=== PATIENT | male | born 1980 | race Hispanic/Latino ===

== ENCOUNTER 2016-11-02 21:53 | Emergency (ER) | payer MEDICARE, MEDICAID ==
[~2016-11-02] VITALS: Ht 175.3 cm; Wt 59.5 kg
[~2016-11-02 21:53] MED LIST: ACET-2605 PO; ADAL40PE2 SQ; ALPR0.25 PO; FOLI1TAB18 PO; METH15TA2 PO; METO5TAB78 PO; PANT40TA2 PO; RIFA550T3 PO
[2016-11-02 22:12] VITALS: BP 113/81; PULSE 136; RESP 20; O2SAT 96
[2016-11-02 23:18] LABS: BASOPHILS % (AUTO) 0.2 % (0-3); EOSINOPHILS % (AUTO) 0.5 % (0-5); MONOCYTES % (AUTO) 3.9 % (4-12); Mean Corpuscular Hemoglobin 30.7 pg (27.0-35.0); Mean Corpuscular Volume 87.7 fL (81-100); NEUTROPHILS % (AUTO) 87.3 % (40-74); Platelet Count 306 bil/L (150-400)
[2016-11-03 00:05] VITALS: BP 113/81; PULSE 136; RESP 20; O2SAT 96
[2016-11-03] MEDS ORDERED: Ondansetron 2 mg/mL 2 mL Inj IVPUSH ONE (01:35)
[2016-11-03] MEDS ORDERED: Pantoprazole 4 mg/mL 10 mL Inj IVPUSH ONE (01:35)
[2016-11-03] MEDS ORDERED: 0.9% Sodium Chloride 1,000 ML IV ONE (01:40)
--- NOTE | 2016-11-03 01:53 | ABG ---
DateTimeAnalyzed 01:49:00 -_ pH ____7.193 - 7.350 7.450 pCO2 ___21.1__ -mmHg 35.0 45.0 pO2 128 -mmHg 69.0 116 HCO3- ____7.8__ -mmol/L 22.0 26.0 ABE __-19.1__ -mmol/L -2.0 2.0 tHb ___14.3__ -g/dL O2Hb ___95.8__ -% COHb ____0.9__ -% MetHb ____1.2__ -% sO2 ___97.9__ -% 25.0 FIO2 ___21.0__ -% Set_RR ___20.0__ -b/min Drawn By MM - Date/Time Notified____ 01:53:00 -_ Notified By MM - Notified Whom DR LLOYD - B 760 -mmHg tO2 ___19.4__ -Vol% Anshul test _Positive -
[2016-11-03] MEDS ORDERED: D5W1/2NS 1,000 mL IV PRN (02:10)
[2016-11-03] MEDS ORDERED: Insulin Human REGular 100 Units/100 mL NS IV SCH ×2 (02:10)
[2016-11-03] MEDS ORDERED: Insulin Human REGular 300 Unit/3 mL Inj IV ONE (02:15)
--- NOTE | 2016-11-03 02:19 | ED.REPORT ---
HPI-Dizziness / Weakness Date of Service November 03, 2016 ED Provider: Tom Webster MD Patient is a 36-year-old male with history of ulcerative colitis and osteopenia who presented to [facility] Emergency Department accompanied by his complaining of worsening weakness, nausea, vomiting, decreased appetite, polyuria, and polydipsia. Patient reports the onset of symptoms about a week and half ago but he got much worse over the last 2 days. Patient denies previous diagnosis of diabetes mellitus. He was noted to be hyperglycemic at his last admission, but was on prednisone at that time. Patient denies fevers, chills, shortness of breath, chest pain, diarrhea, bloody stools, dysuria. Patient is currently on methotrexate and vedolizumab for ulcerative colitis. He denies any recent use of prednisone. Nursing Notes Stated Complaint: VOMITING Chief Complaint: General Complaint Nursing Notes Reviewed: Yes Allergies: Coded Allergies: No Known Allergies (Verified Allergy, Unknown, 11/02/16) Scheduled Acetaminophen/Diphenhydramine (Tylenol Pm Ex-Strength Caplet) 500 Mg-25 Mg Tablet 1 EACH PO QID Adalimumab (Humira Crohn's) 40 Mg/0.8 Ml Pen.ij.kit 40 MG SQ WEEKLY Folic Acid (Folic Acid) 1 Mg Tablet 1 MG PO DAILY Methotrexate Sodium (Trexall) 15 Mg Tablet 15 MG PO WEEKLY Metoclopramide (Reglan) 5 Mg Tablet 5 MG PO ACHS Pantoprazole DR (Protonix) 40 Mg Tablet 40 MG PO BID Rifaximin (Xifaxan) 550 Mg Tablet 550 MG PO TID Scheduled PRN Alprazolam (Xanax) 0.25 Mg Tablet 0.25 MG PO TID PRN PRN For Anxiety General Time Seen by MD: 00:17 Chief Complaint Generalized weakness Hx Obtained From: Patient, Spouse Arrived By: Walk-in Onset Occurred: More than a week ago... Location: : Abdomen Quality: Cramping Radiation: Does not radiate Severity: Current: Mild Recent Healthcare: No recent hospitalization Past Medical History Past Medical History Ulcerative colitis, diagnosed earlier this year Pancytopenia secondary to mercaptopurine therapy, since discontinued Protein calorie malnutrition and weight loss Recurrent fevers, felt to be related to his inflammatory bowel disease Past Surgical History Denies Family History Reviewed, no relevant findings Smoking History Never Smoker Social History Alcohol Use: Denies alcohol use Drug Use: Denies drug use Other Social History: Ambulatory Status Independent Review of Systems A comprehensive review of systems has been conducted with the patient was found to be negative except what is mentioned in the history of present illness. Constitutional: Reports: Fatigue, Lethargy, Recent wt loss, Denies: Fever Respiratory: Denies: Dyspnea on exertion Cardiovascular: Denies: Chest pain GI: Reports: Abdominal pain, Anorexia, Nausea, Vomiting, Denies: Diarrhea, Hematemesis, Hematochezia, Melena, Mucousy stool Hematologic: Denies Bleeding Endocrine: Reports: Polydipsia, Polyuria, Weight loss Physical Exam Initial Vital Signs Vital Signs (First) Date Time Temp Pulse Resp B/P Pulse Ox O2 Delivery O2 Flow Rate FiO2 11/02/16 22:12 36.6 136 20 113/81 96 Room Air Initial VS: Reviewed, Vital signs abnormal (heart rate 136) General/Constitutional: Awake, Alert Distress / Hydration: Positive: Distress mild Appearance / Presentation: Positive: Frail Head / Eyes: Atraumatic, Normocephalic, PERRL, Conjunctiva NL Respiratory / Chest: Atraumatic, No wheezing Diminished Breath Sounds: Positive: Decreased bilateral Cardiovascular: Regular rhythm, No murmurs Heart Rate / Rhythm: Positive: Tachycardia Neurologic: Oriented X3, Speech NL Neck: Atraumatic, Supple, Non-tender Abdomen: Atraumatic, Soft, Non-tender, No guarding, No rebound Lower Extremity / Pelvis / MS: Inspection NL, No swelling, Non-tender, No erythema Interpretation & Diagnostics In summary, this is a 36-year-old male presenting to ED with diabetic ketoacidosis. No previously established diagnosis of diabetes mellitus. Patient started on normal saline IV hydration, IV insulin, Zofran and Protonix. Serum ketones, ABG, lipase,lactic acid, BMP, hemoglobin A1c, magnesium and phosphate are ordered and pending. Patient will be admitted for further treatment and management of DKA. Lab Results Interpretation Result Diagram: 11/02/16 2302 11/02/16 230 Test 11/02/16 23:02 11/03/16 01:15 11/03/16 02:26 White Blood Count 8.3th/mm3 (3.8-10.1) Red Blood Count 5.28mil/mm3 (4.40-5.80) Hemoglobin 16.2g/dL (13.8-17.2) Hematocrit 46.3% (41.0-50.0) Mean Corpuscular Volume 87.7fL (81-100) Mean Corpuscular Hemoglobin 30.7pg (27.0-35.0) Mean Corpuscular Hemoglobin Concent 35.0% (32.0-37.0) Red Cell Distribution Width 13.6% (12.3-15.4) Platelet Count 306bil/L (150-400) Neutrophils (%) (Auto) 87.3% (40-74) Lymphocytes (%) (Auto) 7.7% (14-46) Monocytes (%) (Auto) 3.9% (4-12) Eosinophils (%) (Auto) 0.5% (0-5) Basophils (%) (Auto) 0.2% (0-3) Sodium Level 133mEq/L (134-144) Potassium Level 4.0mEq/L (3.5-5.2) Chloride Level 90mEq/L (97-108) Carbon Dioxide Level 11mmol/L (18-29) Blood Urea Nitrogen 11mg/dL (6-20) Creatinine 1.23mg/dL (0.76-1.27) Estimat Glomerular Filtration Rate 70mL/min (>59) Glucose Level 399mg/dL (60-99) Calcium Level 9.7mg/dL (8.5-10.1) Magnesium Level 2.0mg/dL (1.6-2.6) Total Bilirubin 0.7mg/dL (0.0-1.2) Aspartate Amino Transf (AST/SGOT) 16U/L (0-50) Alanine Aminotransferase (ALT/SGPT) 21U/L (0-44) Alkaline Phosphatase 132U/L (25-150) Total Protein 9.5g/dL (6.4-8.4) Albumin 4.9g/dL (3.4-5.0) Lipase 35U/L (13-60) Lactic Acid Level 2.2mmol/L (0.4-2.0) Ketones Small (Negative) Hold Urine Received (Received) CBC Interpretation CBC normal BMP / CMP Interpretation Na low (133), CO2 low (11), Glucose elevated (399), Lipase elevated (2.2) Urinalysis Interpretation Positive blood (50), Positive glucose (1000), Positive ketones (+++) X-Ray Chest Interpretation Chest Xray Interpretation: Negative chest View: AP & lat Re-Eval/Medical Decision Med Decision/Clinical Course 36-year-old presents with polyuria polydipsia weight loss and market hyperglycemia. He is discovered to be quite acidotic with an anion gap of thirty-two, and proved to have new onset diabetes with DKA. Recent history shows he been hyperglycemic in the setting of prednisone, but he is not on prednisone presently. He is admitted to the ICU, but unfortunately no bed is available. He is transferred now to [facility] for ICU level care. He has been given IV insulin, an insulin drip, IV fluids, and is transported now in improved condition. Patient Discharge & Departure Shift Change Sign-Out Response to Therapy: Improved Impression: Primary Impression: DKA (diabetic ketoacidoses) Diabetes mellitus type: other specified (including ANA) Diabetes mellitus complication detail: without coma Qualified Code: E13.10 - Other specified diabetes mellitus with ketoacidosis without coma Additional Impressions: Diabetes mellitus Diabetes mellitus complication status: with ketoacidosis Diabetes mellitus prison insulin use: without prison use Ulcerative colitis Disposition: Transfer, Acute Care Facility ([facility]) Discharge Condition All VS Reviewed: Yes Condition: Critical Referrals: Vernon Wick ND (PCP) Crit Care Except Billable Proc Time Spent: 30-74 minutes (thirty minutes) Services Performed: Patient management by me, Time spent at bedside, Reviewing test results, Reviewing imaging, Discussing patient care, Documentation in record, Time with fam/surrogate EDSupervising Provider for APC: Tom Webster MD Attending Statement As attending of record for this patient, I conducted an independent history and physical examination, and I concur with the resident documentation as above, and as amended. Vernon Wick ND, Oksana S DO November 03, 2016 02:19 Tom Webster MD November 03, 2016 03:31
[2016-11-03] MEDS ORDERED: Insulin Human REGular-Omnicell 100 Unit/mL ONE (02:24)
[2016-11-03] MEDS ORDERED: ProchlorPERazine 5 mg/mL 2 mL Inj IVPUSH ONE (03:05)
[2016-11-03 03:24] VITALS: BP 117/84; PULSE 102; RESP 20; O2SAT 97
[2016-11-03 03:50] VITALS: BP 117/84; PULSE 102; RESP 20; O2SAT 97
[2016-11-03 04:02] LABS: Phosphorus 1.9 mg/dL (2.5-4.9)
--- NOTE | 2016-11-04 09:37 | DRSVH ---
PROCEDURE: X-RAY CHEST, TWO VIEWS ([id number]) INDICATIONS: weakness, NAUSEA TECHNIQUE: 2 views of the chest were acquired. COMPARISON: [facility], , CHEST 2VW, 01/05/2014, 14:58. FINDINGS: Surgical changes and devices: None. Lungs and pleura: No pleural effusions or pneumothorax. Lungs are clear. Mediastinum: Mediastinal contours are normal. Heart size is normal. Bones and chest wall: No suspicious bony abnormalities. Soft tissues appear unremarkable. IMPRESSION: Normal chest. Dictated by: Dean Messina M.D. on 11/03/2016 at 8:10 Approved by: Dean Messina M.D. on 11/03/2016 at 8:11
== END 2016-11-03 04:00 | disposition short-term general hospital (02) ==
LOC: SED 21:53
DX: E13.10 Other specified diabetes mellitus with ketoacidosis without coma (principal); K51.90 Ulcerative colitis, unspecified, without complications
CPT/HCPCS: 36415; 36620; 71020; 80048; 80053; 82009; 82375; 82803; 83036; 83605; 83690; 83735; 84100; 85025; 96361; 96374; 96375; 96376; 99291; J1815; J2405; J7030

== ENCOUNTER → 2017-03-10 | Day surgery (SDC) | payer MEDICARE ==
[~2017-03-10] VITALS: Ht 175.3 cm; Wt 68.0 kg
[~2017-03-10] MED LIST changes: +0.9% Sodium Chloride 1,000 ML IV SCH; +Sodium Chloride LOK Flush 10 mL Syringe IV PRN; +VEDO300V IV; +fentaNYL-PF 50 mCg/mL 2 mL Inj IVPUSH PRN
[2017-03-10 12:30] VITALS: BP 105/69; PULSE 69; RESP 12; O2SAT 99
[2017-03-10 13:17] VITALS: BP 89/60; PULSE 59; RESP 11; O2SAT 100
[2017-03-10 13:28] VITALS: BP 85/54; PULSE 59; RESP 11; O2SAT 99
[2017-03-10 13:34] VITALS: BP 100/68; PULSE 63; RESP 12; O2SAT 100
--- NOTE | 2017-03-10 14:18 | ENDO ---
[address] [address] ENDOSCOPY PROCEDURE PATIENT: ELIEZER WEINBERG : 1980 MR#: [id number] ADMIT: 03/10/2017 JOB ID: [id number] DATE: 03/10/2017 PRIMARY PROVIDER: Vernon Wick ND PROCEDURE: Colonoscopy with biopsies. INDICATIONS: A 36-year-old male with ulcerative colitis. He has been on Entyvio and methotrexate. He reports on average about one bowel movement per day. Much better control over his symptoms. He is pleased with the effect. EQUIPMENT: Vapps 190 L. SEDATION: 3 mg Versed, 50 mcg fentanyl. COMPLICATIONS: None identified. BOWEL PREPARATION: Fair, adequate exam. PROCEDURE INFORMATION: After the risks and benefits were explained, written and verbal informed consent was obtained. The patient was brought into the endoscopy suite and placed into the left lateral decubitus position. Sedation was achieved as above. A digital rectal examination was accomplished. No significant pathology was appreciated. Mild internal hemorrhoids. The scope was introduced into the rectum and advanced under direct visualization to the cecum as identified by the appendiceal orifice and ileocecal valve. The scope was slowly withdrawn to carefully examine the mucosa for any defects or lesions. Retroflexed views were avoided in the rectum. Multiple direct views were made through the dentate line for exclusion of pathology. The colon was decompressed and the scope removed from the patient, who tolerated the procedure well. FINDINGS: The terminal ileum was interrogated and appeared visually normal. There was loss of the typical vascular pattern in the rectum, with some diffuse granularity. No erosions or ulcers. No active florid inflammation. The subtle proctopathy extended into the colon proper, and this granular pattern and scant erythema was in essence present all the way through for the most part. There was a small collection again of some benign appearing pseudopolyps at around 35 cm from the anal verge. In the transverse colon there was an obvious erosion and this area was targeted for biopsy. Otherwise, I took an extra set of random right colon biopsies and random left colon biopsies for histopathologic analysis. ENDOSCOPIC DIAGNOSES: 1. Quiescent pancolitis. 2. Pseudopolyps. RECOMMENDATIONS: 1. Await histopathology. 2. Continue current medical regimen. 3. Update baseline labs and follow up in the office within the next 6-8 weeks.
--- NOTE | 2017-03-11 11:35 | PATH ---
SURGICAL PATHOLOGY Attending Physician:Gavino Gonzales CASE STATUS: Signed Out PATIENT NAME: ELIEZER WEINBERG PID: [id number] : 1980 DATE COLLECTED:03/10/2017 20:16 SPECIMEN: 1: Colon, Biopsy 2: Colon, Biopsy 3: Colon, Biopsy CLINICAL HISTORY: PERSONAL HISTORY OF COLITIS 1). RIGHT COLON BIOPSY 2). TRANSVERSE COLON EROSION BIOPSY 3). LEFT COLON BIOPSY FINAL DIAGNOSIS: 1. Right Colon, Biopsy: Colonic mucosa with mildly distorted glandular architecture, consistent with chronic active colitis in a quiescent phase. Negative for dysplasia and malignancy. 2. Transverse Colon Erosion, Biopsy: Colonic mucosa with chronic active colitis with mild activity. Negative for dysplasia and malignancy. 3. Left Colon, Biopsy: Colonic mucosa with mildly distorted glandular architecture, consistent with chronic active colitis in a quiescent phase. Negative for dysplasia and malignancy. ICD10: K52.9 GROSS DESCRIPTION: The specimen is received in three formalin filled containers labeled with the patient's name. 1). The specimen is labeled "right colon" and consists of a 0.2 x 0.2 x 0.2 CM portion of tissue which is entirely submitted in cassette 1A. 2). The specimen is labeled "transverse colon erosion" and consists of a 0.3 x 0.3 x 0.2 CM portion of tissue which is entirely submitted in cassette 2A. 3). The specimen is labeled "left colon" and consists of 2 portions of tissue which aggregate to 0.2 x 0.2 x 0.2 CM. The specimen is entirely submitted in cassette 3A. 03/10/2017DC ICD-9 CODES: CPT CODES: 1: 74244 2: 21549 3: 33785 Electronically Signed Out Andrez Luevano MD, PhD [facility], [place] [address] Technical component performed at [facility], [address] [place] [address] Ave[address], [place], [address]
== END | disposition home or self-care (01) ==
LOC: END 02:26
PROVIDERS: ATTEND Internal Medicine Gastroenterology
DX: K51.80 Other ulcerative colitis without complications (principal); K63.5 Polyp of colon; K64.8 Other hemorrhoids; R00.0 Tachycardia, unspecified; Z79.899 Other long term (current) drug therapy